=== PATIENT | female | born 1980 | race Caucasian/White ===

== ENCOUNTER 2017-10-30 10:10 | Emergency (ER) | payer OTHER ==
[2017-10-30] MEDS: ONDANSETRON (ODT) 4 MG TAB ODT (11:19)
[2017-10-30] MEDS: KETOROLAC 30 MG INJ IM (11:19)
== END 2017-10-30 12:00 | disposition home or self-care (01) ==
LOC: FTE 10:10
DX: K52.9 Noninfective gastroenteritis and colitis, unspecified (principal)
CPT/HCPCS: 81025; 96372; 99284-25